=== PATIENT | female | born 1955 | race Asian ===

== ENCOUNTER 2017-05-21 09:18 | Emergency (ER) | payer SELFPAY ==
[~2017-05-21] VITALS: Ht 162.6 cm; Wt 51.8 kg
[2017-05-21 09:19] VITALS: BP 112/72; PULSE 73; RESP 16; O2SAT 98
[2017-05-21] MEDS ORDERED: 0.9% Sodium Chloride 1,000 ML IV ONE (09:39)
--- NOTE | 2017-05-21 09:39 | ED.REPORT ---
HPI-Neurologic Deficit Date of Service May 21, 2017 ED Provider: Dr. Al Gilliam MD A 62 year old female with a history of recently diagnoses major depressive disorder presents to the ED with worsening vertigo that initially began 2 months ago but became increasingly worse 5 days ago. Recent associated symptoms include intermittent episodes of significant fatigue, ataxia, dizziness and right leg weakness. She has experienced ~10 GLF over the past 2 months secondary to vertigo. Her last fall was 5 days ago. reports that the patient's symptoms have become progressively worse since onset. She has been evaluated at several clinics in the area who recommended the patient obtain an MRI scan. Patient recently began citalopram 3 days ago after UC attributed her symptoms to depression. She has also been treated with meclizine and a baby aspirin this morning. denies fever, chills or diaphoresis. Nursing Notes Stated Complaint: VERTIGO, DEPRESSION Chief Complaint: General Complaint Nursing Notes Reviewed: Yes Allergies: Coded Allergies: No Known Allergies (Unverified , 05/21/17) General Time Seen by Provider: 09:43 Chief Complaint Other (Vertigo) Hx Obtained From: Spouse Arrived By: Walk-in Sudden in Onset?: No Onset Occurred: More than a week ago... (2 months) Symptom Duration: Intermittent Progression Since Onset: Gradually worsening Associated with: Reports: Balance problem, Weakness Pertinent Negative: Pt denies other symptoms Recent Healthcare: No recent hospitalization, Recent doctor visit Similar Sx Previous: Yes Past Medical History Past Medical History Notes: Primary Language: Frisian Past Medical History Major Depressive Disorder Past Surgical History None reported. Smoking History Never Smoker Social History Other Social History: , Local resident Ambulatory Status Independent Review of Systems + ataxia Constitutional: Reports: Fatigue, Denies: Chills, Fever Skin: Denies Diaphoresis Neurologic: Reports: Focal weakness, Problem walking, Spinning sensation Psychiatric: Reports: Depression Complete sys rev & neg: except as marked. Physical Exam Initial Vital Signs Vital Signs (First) Date Time Temp Pulse Resp B/P Pulse Ox O2 Delivery O2 Flow Rate FiO2 05/21/17 09:19 37.2 73 16 112/72 98 Room Air Initial VS: Reviewed Neck: Supple, Non-tender, Full range of motion Extremities: Vascular intact, Neuro intact, No swelling, No tenderness Skin: Warm, Dry, No cyanosis General/Constitutional: Awake Alertness: Positive: Somnolent Head / Eyes: Atraumatic, Normocephalic, PERRL Trauma - General: Positive: Abrasion (Well healing abrasions to the right side of the face) Respiratory / Chest: Atraumatic, Breath sounds NL, Breath sounds = bilat, No respiratory distress Cardiovascular: Heart rate NL, Regular rhythm, Heart sounds NL Neurologic: No motor deficits, No sensory deficits, CN II - XII intact Mental Status: Positive: Confused, Somnolent Cerebellar Dysfunction: Positive: Ataxia peripheral NEURO: Disoriented to the current situation and inappropriate responses - Referenced as "daddy" ENT: Atraumatic, Airway patent, Mucous membranes moist Trauma - General: Positive: Abrasion (Well healing over the right lip) Abdomen: Atraumatic, Soft, Non-tender Psychiatric: Not suicidal, Not homicidal Abnormal Mood/Affect: Positive: Flat affect Interpretation & Diagnostics Lab Results Interpretation Result Diagram: 05/21/17 1013 05/21/17 1013 Test 05/21/17 10:13 White Blood Count 11.7th/mm3 (3.8-10.1) Red Blood Count 4.33mil/mm3 (3.90-5.20) Hemoglobin 13.6g/dL (12.0-15.6) Hematocrit 40.7% (35.0-46.0) Mean Corpuscular Volume 94.0fL (81-100) Mean Corpuscular Hemoglobin 31.4pg (27.0-35.0) Mean Corpuscular Hemoglobin Concent 33.4% (32.0-37.0) Red Cell Distribution Width 11.9% (12.3-15.4) Platelet Count 293bil/L (150-400) Neutrophils (%) (Auto) 72.3% (40-74) Lymphocytes (%) (Auto) 18.6% (14-46) Monocytes (%) (Auto) 8.0% (4-12) Eosinophils (%) (Auto) 0.6% (0-5) Basophils (%) (Auto) 0.3% (0-3) Prothrombin Time 9.8sec (8.1-12.5) Prothromb Time International Ratio 0.92ratio Activated Partial Thromboplast Time 24.1sec (22.8-33.0) Sodium Level 139mEq/L (134-144) Potassium Level 3.6mEq/L (3.5-5.2) Chloride Level 100mEq/L (97-108) Carbon Dioxide Level 24mmol/L (18-29) Blood Urea Nitrogen 14mg/dL (8-27) Creatinine 0.55mg/dL (0.57-1.00) Estimat Glomerular Filtration Rate 161mL/min (>59) Glucose Level 123mg/dL (60-99) Calcium Level 9.2mg/dL (8.5-10.1) Total Bilirubin 0.3mg/dL (0.0-1.2) Aspartate Amino Transf (AST/SGOT) 19U/L (0-50) Alanine Aminotransferase (ALT/SGPT) 10U/L (0-32) Alkaline Phosphatase 97U/L (25-165) Troponin T 0.010ug/L (0.0-0.011) Total Protein 7.2g/dL (6.4-8.4) Albumin 4.1g/dL (3.4-5.0) Thyroid Stimulating Hormone (TSH) 1.150uIU/mL (0.450-4.500) Free Thyroxine 1.14ng/dL (0.82-1.77) Alcohols < 10mg/dL (0-10) ECG Interpretation ECG Interpretation: Sinus Rhythm Rate [address] segment changes Time: 10:14 Interpreted by: ED physician X-Ray Chest Interpretation Chest Xray Interpretation: IMPRESSION: Possible mass lesion involving the AP window of the left mediastinum, contiguous with the middle and upper thirds of the left hilum. As discussed, adenopathy and/or aneurysm can produce such an appearance. Depending on the clinical status contrast-enhanced chest CT scanning may be warranted. Dictated by: Claudio Marcus M.D. on 05/21/2017 at 10:10 Interpretation / Wet Read by: Interpret - Radiologist CT Head Interpretation IMPRESSION: Abnormal noncontrast CT brain scan suggestive of intracranial mass lesion(s). Repeat CT brain with contrast recommended for further evaluation. Report called to Dr. Palomares in the ED at 1109 hrs. on 05/21/2017 Dictated by: Lavell Diaz M.D. on 05/21/2017 at 11:09 Study: Head CT no contrast Interpretation / Wet Read by: Interpret - Radiologist, Jacey w radiologist Re-Eval/Medical Decision Med Decision/Clinical Course Symptomatic brain tumor. Will be transferred to [facility]. IV dexamethasone given. Re-Evaluation/Progress #1: Time of Eval: 11:09 Re-Evaluation/Progress Note: Family is informed of the concerning CT results and the plan to transfer to a facility with a neurosurgeon. Re-Evaluation/Progress #2: Time of Eval: 11:35 Re-Evaluation/Progress Note: Patient is rechecked. is informed of the patient's current results and the accepted transfer to [facility]. All questions about the intended treatment plan at present are addressed. Consultation #1: Consulted With: Neurology, Surgeon Call Returned at: 11:28 Ship'S Master: Will see patient, Agrees with eval, Agrees with plan Note: [facility] - Will accept to ICU [facility] Will call back with bed availability. Consultation #2: Consulted With: [facility] Call Returned at: 12:02 Ship'S Master: Will see patient, Agrees with eval, Agrees with plan, Accepts admit Note: [facility] - Dr. Kandy Sosa Counseled Regarding: Diagnosis, Lab results, Need for transfer Discharge & Departure Impression: Primary Impression: Brain tumor Additional Impression: Altered mental status Disposition: Transfer, Acute Care Facility ([facility]) Receiving Hospital: [facility] Transfer Accepted at: 11:34 Transfer Reason: Higher level of care Spoke with: Specialty physician (Dr. Kandy Sosa) Patient Status: Stable Patient Informed: Yes Discharge Condition All VS Reviewed: Yes Condition: Stable Referrals: Chrissy Kwok PA-C (PCP) Scribe Attestation Portions of this note were transcribed by Carlota Dela Cruz. I, Dr. Constantino Gilliam, personally performed the history, physical exam and medical decision-making; I reviewed and confirmed the accuracy of the information in the transcribed note. Signed by: Carlota Dela Cruz, 05/21/17. copies to: Chrissy Kwok PA-C, Timothy S DO May 21, 2017 09:39 CARLOTA DELA CRUZ May 21, 2017 09:45
--- NOTE | 2017-05-21 10:13 | DRSVH ---
PROCEDURE: X-RAY CHEST ONE VIEW, PORTABLE ([id number]) INDICATIONS: generalized weakness TECHNIQUE: One view of the chest was acquired. COMPARISON: None. FINDINGS: Surgical changes and devices: None. Lungs and pleura: No pleural effusions or pneumothorax. Lungs are clear. Mediastinum: Mediastinal contours appear normal except at the left superior hilum area abutting the inferior lateral aspect of the aortic arch, where a lobulated contour abnormality raises concern for whether adenopathy or a focal aneurysm could be present in that area. Heart size is normal. Bones and chest wall: No suspicious bony lesions. Overlying soft tissues appear unremarkable. IMPRESSION: Possible mass lesion involving the AP window of the left mediastinum, contiguous with the middle and upper thirds of the left hilum. As discussed, adenopathy and/or aneurysm can produce suc h an appearance. Depending on the clinical status contrast-enhanced chest CT scanning may be warrant ed. Dictated by: Claudio Marcus M.D. on 05/21/2017 at 10:10 Approved by: Claudio Marcus M.D. on 05/21/2017 at 10:12
[2017-05-21 10:16] VITALS: BP 137/77; PULSE 68; RESP 20; O2SAT 97
[2017-05-21 10:30] LABS: BASOPHILS % (AUTO) 0.3 % (0-3); EOSINOPHILS % (AUTO) 0.6 % (0-5); Mean Corpuscular Hemoglobin 31.4 pg (27.0-35.0); NEUTROPHILS % (AUTO) 72.3 % (40-74); Platelet Count 293 bil/L (150-400)
[2017-05-21 10:55] LABS: INR 0.92 ratio
[2017-05-21] MEDS ORDERED: Dexamethasone Inj 10 MG in 0.9% Sodium Chloride-Pha MIX 50 ML IV ONE (11:10)
--- NOTE | 2017-05-21 11:14 | DRSVH ---
PROCEDURE: CT BRAIN WITHOUT CONTRAST ([id number]) INDICATIONS: ALOC TECHNIQUE: Noncontrast 4.5 mm thick angled axial sections acquired from the foramen magnum to the vertex, with c oronal reformats. COMPARISON: None. FINDINGS: Image quality: Excellent. CSF spaces: Basal cisterns are patent. No extra-axial fluid collections. The ventricles are asymme trical, possibly reflecting mass effect on the right lateral ventricle.. Brain: There is a 3 cm hypodense masslike lesion in the right frontal lobe inferiorly, associated wit h focal midline shift from [id number]. The cortical medullary differentiation is also indistinct b ilaterally in the more superior portion of the frontal lobes. There is cerebral volume loss for age, with resultant ventricular and sulcal prominence. There are periventricular and deep white matter ch ronic small vessel ischemic changes. There is intracranial internal carotid artery atherosclerosis. Skull and face: Calvarium and visualized facial bones appear intact, without suspicious lesions. Sinuses: Visualized sinuses and mastoids are clear. IMPRESSION: Abnormal noncontrast CT brain scan suggestive of intracranial mass lesion(s). Repeat CT brain with co ntrast recommended for further evaluation. Report called to Dr. Palomares in the ED at 1109 hrs. on 05/21/2017 Dictated by: Lavell Diaz M.D. on 05/21/2017 at 11:09 Approved by: Lavell Diaz M.D. on 05/21/2017 at 11:12
[2017-05-21 11:49] VITALS: BP 127/69; PULSE 58; RESP 20; O2SAT 99
[2017-05-21 12:41] VITALS: BP 121/62; PULSE 57; RESP 20; O2SAT 99
[2017-05-21 14:10] VITALS: BP 129/60; PULSE 61; RESP 20; O2SAT 100
== END 2017-05-21 14:12 | disposition short-term general hospital (02) ==
LOC: SED 09:18
DX: D43.2 Neoplasm of uncertain behavior of brain, unspecified (principal); R41.82 Altered mental status, unspecified; R42 Dizziness and giddiness; F32.9 Major depressive disorder, single episode, unspecified
CPT/HCPCS: 36415; 70450; 71010; 80053; 82948; 84439; 84443; 84484; 85025; 85610; 85730; 93005; 96361; 96374; 99285; G0480; J1100; J7030